=== PATIENT | male | born 1980 | race Two or more races ===

== ENCOUNTER 2019-08-04 14:29 | Emergency (ER) | payer OTHER, MEDICAID ==
[~2019-08-04] VITALS: Ht 175.3 cm; Wt 92.5 kg
[~2019-08-04 14:29] MED LIST: DOXE50CA57; PAROXETINE
[2019-08-04 15:00] VITALS: BP 114/79
== END 2019-08-04 16:26 | disposition home or self-care (01) ==
LOC: ER 14:29
DX: K59.00 Constipation, unspecified (principal); Z79.899 Other long term (current) drug therapy
CPT/HCPCS: 74018

== ENCOUNTER 2022-09-16 17:36 | Inpatient (IN) | payer OTHER, MEDICAID ==
[~2022-09-16] VITALS: Ht 175.3 cm; Wt 90.0 kg
[2022-09-16 19:03] LABS: Basophils # (auto) 0 10 ^3/uL (0-0.2); Basophils % (auto) 0.3 % (0.0-2.0); Eosinophils # (auto) 0 10 ^3/uL (0-0.8); Eosinophils % (auto) 0.1 % (0.0-7.0); Hematocrit 38.8 % (41.0-53.0); Hemoglobin 13.3 g/dL (13.5-17.5); Lymphocytes # (auto) 0.8 10 ^3/uL (0.4-5.4); Lymphocytes % (auto) 16.1 % (10.0-50.0); Mean Corpuscular Hgb Conc. 34.2 g/dL (32.0-36.0); Mean Corpuscular Volume 84.9 fL (80.0-100.0); Monocytes # (auto) 0.4 10 ^3/uL (0-1.3); Monocytes % (auto) 9.4 % (0.0-12.0); Neutrophils # (auto) 3.5 10 ^3/uL (1.6-8.6); Neutrophils % (auto) 74.1 % (37.0-80.0); Red Blood Cells 4.57 10^6/uL (4.5-5.90); Red Cell Distribution Width 14.2 % (11.8-14.3); White Blood Cell 4.7 10^3/uL (4.4-10.8)
[2022-09-16 19:16] LABS: Albumin 3.2 g/dL (3.4-5.0); Calcium 8.1 mg/dL (8.5-10.1); Potassium 3.8 mmol/L (3.5-5.1)
[2022-09-16 19:19] LABS: BUN/Creatinine Ratio 14.3
[2022-09-16 19:21] LABS: Bilirubin, Total 0.4 mg/dL (0.2-1.0); Total Protein 6.4 g/dL (6.4-8.2)
[2022-09-16 19:54] LABS: INR 1.04 (0.9-1.15); Partial Thromboplastin Time 30.2 sec (24.6-33.4)
[2022-09-16] MEDS ORDERED: PANTOPRAZOLE 40 MG/10 ML VIAL INJ IV ONE (22:45)
[2022-09-16] MEDS ORDERED: MAALOX PLUS or MAALOX 30 ML PO ONE (22:45)
[2022-09-17] MEDS ORDERED: TEMAZEPAM 15 MG CAP PO PRN (02:00)
[2022-09-17] MEDS ORDERED: DOCUSATE SOD 100 MG CAP PO PRN (02:00)
[2022-09-17] MEDS ORDERED: SODIUM CHLORIDE 0.9% 1,000 ML IV SCH (02:00)
[2022-09-17] MEDS ORDERED: MORPHINE SULFATE INJ 2 MG/ml SYRG IV PRN (02:00)
[2022-09-17] MEDS ORDERED: HYDROcodone-ACET 5/325MG TAB PO PRN (02:00)
[2022-09-17] MEDS ORDERED: ACETAMINOPHEN 325 MG TAB PO PRN (02:00)
[2022-09-17] MEDS ORDERED: MAALOX PLUS or MAALOX 30 ML PO PRN (02:00)
[2022-09-17] MEDS ORDERED: ONDANSETRON HCL 4 MG/2 ML VIAL IV PRN (02:00)
[2022-09-17] MEDS ORDERED: LORazepam 0.5 MG TAB PO PRN (02:00)
[2022-09-17 07:44] LABS: Calcium 8.4 mg/dL (8.5-10.1)
[2022-09-17 07:46] LABS: BUN/Creatinine Ratio 14.9; Basophils # (auto) 0 10 ^3/uL (0-0.2); Basophils % (auto) 0.5 % (0.0-2.0); Eosinophils # (auto) 0 10 ^3/uL (0-0.8); Eosinophils % (auto) 0.4 % (0.0-7.0); Hematocrit 37.3 % (41.0-53.0); Hemoglobin 12.6 g/dL (13.5-17.5); Lymphocytes # (auto) 1.2 10 ^3/uL (0.4-5.4); Lymphocytes % (auto) 30.1 % (10.0-50.0); Mean Corpuscular Hemoglobin 28.8 pg (28.0-32.0); Mean Corpuscular Hgb Conc. 33.9 g/dL (32.0-36.0); Mean Corpuscular Volume 85.1 fL (80.0-100.0); Monocytes # (auto) 0.6 10 ^3/uL (0-1.3); Monocytes % (auto) 13.8 % (0.0-12.0); Neutrophils # (auto) 2.2 10 ^3/uL (1.6-8.6); Neutrophils % (auto) 55.2 % (37.0-80.0); Nucleated Red Blood Cells % 0.1 %; Red Blood Cells 4.38 10^6/uL (4.5-5.90); Red Cell Distribution Width 14.2 % (11.8-14.3)
[2022-09-17 10:54] LABS: Potassium 3.7 mmol/L (3.5-5.1)
[2022-09-17] MEDS: PANTOPRAZOLE 40 MG/10 ML VIAL INJ IV SCH (10:55)
[2022-09-17 12:22] LABS: Hematocrit 36.9 % (41.0-53.0); Hemoglobin 12.2 g/dL (13.5-17.5)
[2022-09-18] MEDS: PANTOPRAZOLE 40 MG/10 ML VIAL INJ IV SCH (00:12)
[2022-09-18 05:02] LABS: Hematocrit 38.4 % (41.0-53.0); Hemoglobin 13.2 g/dL (13.5-17.5)
[2022-09-18] MEDS ORDERED: PANT40TA2 PO (07:47)
[2022-09-18 08:03] VITALS: BP 120/71
== END 2022-09-18 08:05 | disposition home or self-care (01) | DRG 377 ==
LOC: ER 17:36 → OVERFLOW 09-17 02:03
PROVIDERS: ADMIT Hospitalist; ATTEND Nurse Practitioner Acute Care
DX: K92.2 Gastrointestinal hemorrhage, unspecified (principal); U07.1 COVID-19; D64.9 Anemia, unspecified; F20.9 Schizophrenia, unspecified; Z87.11 Personal history of peptic ulcer disease; F32.A Depression, unspecified
CPT/HCPCS: 36415; 74176; 80048; 80053; 82270; 84484; 85014; 85018; 85025; 85379; 85610; 85730; 87426; 87804; 93005; C9113; G0378

== ENCOUNTER 2022-10-07 13:33 | Emergency (ER) | payer OTHER, MEDICAID ==
[~2022-10-07] VITALS: Ht 175.3 cm; Wt 86.4 kg
[~2022-10-07 13:33] MED LIST changes: +PANT40TA2 PO
[2022-10-07 14:01] VITALS: BP 103/75
== END 2022-10-07 16:33 | disposition home or self-care (01) ==
LOC: ER 13:33
DX: R13.10 Dysphagia, unspecified (principal); F32.9 Major depressive disorder, single episode, unspecified; F20.9 Schizophrenia, unspecified; Z88.0 Allergy status to penicillin; Z79.899 Other long term (current) drug therapy